=== PATIENT | male | born 1960 | race Caucasian/White ===

== ENCOUNTER 2016-12-21 12:54 | Emergency (ER) | payer MEDICAID ==
[2016-07-30 10:54] VITALS: BMI 23.0
[~2016-12-21 12:54] MED LIST: ASPIRIN EC81 M1 PO; ASPIRIN325 MG PO; BROVANA15 MCG/2 M INH; CRESTOR10 MG PO; EFFIENT10 MG PO; IPRAT-ALBUT 0.5-3 ML INH; LOPRESSOR25 MG PO; NICODERM C1 PATCH .2 TRANSDERM; OMNICEF300 MG PO; PLAVIX75 MG; PLAVIX75 MG PO; PREDNISONE10 MG PO; PREDNISONE20 MG PO; PROTONIX40 MG PO; PROVENTIL/2.5 MG/3 M INH; STERAPRED DS 1010 MG PO; STERAPRED DS 1210 MG PO; ZESTORETIC 10/11 TAB PO; ZOCOR20 MG PO
[2016-12-21 13:31] LABS: EOSINOPHILS 5.2 % (0-7); HEMATOCRIT 42.7 % (42.0-54.0); HEMOGLOBIN 14.1 g/dL (13.5-17.5); IMMATURE GRANULOCYTES 0.2 % (0-5); LYMPHOCYTES 33.2 % (15-50); MCH 30.8 pg (26.0-34.0); MCV 93.2 fL (80.0-100.0); MEAN PLATELET VOLUME 11.6 fL (7.4-10.4); MONOCYTES 6.7 % (2-11); NEUTROPHILS 53.7 % (40-80); RBC 4.58 10x6/uL (4.20-6.10); RDW 13.4 % (11.5-14.5); WBC 10.7 10x3/uL (4.8-10.8)
[2016-12-21 13:36] LABS: PLATELET COUNT 203 10x3/uL (130-400)
[2016-12-21 14:01] LABS: ALBUMIN 3.9 g/dL (3.4-5.0); ALKALINE PHOSPHATASE 82 U/L (46-116); ALT (SGPT) 24 U/L (10-68); BILIRUBIN - TOTAL 0.59 mg/dL (0.2-1.3); CALC OSMOLALITY 287 mosm/kg (275-300); CALCIUM 9.6 mg/dL (8.5-10.1); CARBON DIOXIDE 28.8 mmol/L (21.0-32.0); CHLORIDE - SERUM 106 mmol/L (98-107); CREATININE - SERUM 1.4 mg/dL (0.6-1.3); GLUCOSE 112 mg/dL (74-106); POTASSIUM - SERUM 4.1 mmol/L (3.5-5.1); PROTEIN - SERUM 7.9 g/dL (6.4-8.2); SODIUM 142 mmol/L (136-145); UREA NITROGEN 24 mg/dL (7-18); eGFR NON AFRICAN AMERICAN 55 mL/min (90-120)
[2016-12-21 14:10] LABS: CHOLESTEROL, TOTAL 237 mg/dL (0-200); CKMB 3.9 U/L (0.0-3.6); CREATINE KINASE 145 UL (21-232); HDL CHOLESTEROL 79 mg/dL (32-96); LDL CHOLESTEROL 144 mg/dL (0-100); LDL-HDL RATIO 1.8 ratio (1.5-3.5); TRIGLYCERIDE 70 mg/dL (30-200)
[2016-12-21 14:13] LABS: TROPONIN-I < 0.017 ng/mL (0.000-0.060)
== END 2016-12-21 16:00 | disposition home or self-care (01) ==
LOC: D.ER 12:54
PROVIDERS: Family Medicine
DX: R07.89 Other chest pain (principal); J45.909 Unspecified asthma, uncomplicated; J44.9 Chronic obstructive pulmonary disease, unspecified; K21.9 Gastro-esophageal reflux disease without esophagitis; I10 Essential (primary) hypertension; R00.0 Tachycardia, unspecified

== ENCOUNTER 2017-05-03 08:03 | Outpatient (CLI) | payer MEDICAID ==
[~2017-05-03] VITALS: Ht 180.3 cm; Wt 84.1 kg
--- NOTE | ~2017-05-03 | HEMODYNAMI ---
PATIENT:MARCUS DAVIS MEDICAL RECORD: [id number] : 56 LOCATION:D.CAT ADMISSION DATE: 05/03/17 Generatedon:05/03/201711:58 Patient name: MARCUS DAVIS Patient #: [id number] SSN: : 1960 Date of study: 05/03/2017 Page: Of Hemodynamic Procedure Report Patient Data Patient Demographics Procedure consent was obtained First Name: MARCUS Gender: Male Last Name: SUSAN : 1960 [facility] Initial: R Age: 57 year(s) Patient #: [id number] Race: Additional ID: [id number] Contact details [address]: [address] [place] [address] [address] State: [place] [facility] [place]: [address] Past Medical History Allergies: No known allergies Admission Admission Data Admission Date: 05/03/2017 Admission Time: 8:03 Admit Source: Other Lab Results Lab Result Date: 05/03/2017 Lab Result Time: 0:00 Biochemistry Name Units Result Min Max BUN mg/dl 22 --(----)-* 7 18 Creatinine mg/dl 1.1 --(--*-)-- 0.6 1.3 CBC Name Units Result Min Max Hemoglobin g/dl 13.3 -*(----)-- 13.5 17.5 Procedure Procedure Types Cath Procedure Diagnostic Procedure LHC C w/Coronaries Procedure Description Procedure Date Procedure Date: 05/03/2017 Procedure Start Time: 11:48 Procedure End Time: 11:58 Procedure Staff Name Function Anthony Harper MD Performing Physician Cat Mcdonald RT Scrub Hernan Rodrigues RN Nurse Justin Pendleton RT Monitor Procedure Data Cath Procedure Fluoroscopy Diagnostic fluoroscopy Total fluoroscopy Time: 1 time: 1 min min Diagnostic fluoroscopy Total fluoroscopy dose: 307 dose: 307 mGy mGy Contrast Material Contrast Material Type Amount (ml) Isovue 300 60 Entry Location Entry Primary Successful Side Size Upsize Upsize Entry Closure Succes sful Closure Location (Fr) 1 (Fr) 2 (Fr) Remarks Device Remarks Femoral Right 6 Fr Exoseal artery Short Estimated blood loss: 5 ml Diagnostic catheters Device Type Used For End Catheter Placement Cordis 5Fr Pigtail Procedure Catheter (MP) Cordis 5Fr JL 4.0 Procedure Catheter (MP) Cordis 5Fr 3DRC Catheter Procedure (MP) Procedure Medications Medication Administration Route Dosage Oxygen NC 2 l/min Heparin Flush Bag added to field 2 bags (1000units/500ml NS) 0.9% NaCl I.V. 100 ml/hr Fentanyl I.V. 50 mcg Versed I.V. 1 mg Fentanyl I.V. 50 mcg Versed I.V. 1 mg Hemodynamics Rest HGB: 13.3 (g/dl) Heart Rate: 75 (bpm) Pressure Samples Time Site Value (mmHg) Purpose Heart Use Rate(bpm) 11:49 LV 109/24,40 Snapshot 75 Snapshots Pre Cath Intra NCS Post Cath Vital Signs Time Heart Resp SPO2 NIBP (mmHg) Rhythm Pain Sedation Rate (ipm) (%) Status Level (bpm) 11:34:14 72 20 98 130/74(100) NSR 0 (11) 10(A) , No pain 11:38:26 65 21 100 127/81(108) NSR 0 (11) 10(A) , No pain 11:42:35 74 20 100 126/78(103) NSR 0 (11) 10(A) , No pain 11:46:45 70 18 99 121/74(96) NSR 0 (11) 10(A) , No pain 11:50:53 75 17 95 110/74(89) NSR 0 (11) 9(A) , No pain 11:54:57 81 18 94 106/70(82) NSR 0 (11) 9(A) , No pain 11:57:30 78 20 97 115/69(97) NSR 0 (11) 9(A) , No pain Medications Time Medication Route Dose Verified Delivered Reason Notes Effec tiveness by by 11:35:47 Oxygen NC 2 Hernan Becerra Per l/min Ravi Rodrigues RN physician RN 11:35:55 Heparin Flush added 2 Hernan Becerra used for Bag to bags Ravi Rodrigues RN procedure (1000units/500ml field RN NS) 11:36:07 0.9% NaCl I.V. 100 Hernan Becerra Per ml/hr Ravi Rodrigues RN physician RN 11:47:25 Fentanyl I.V. 50 Hernan Hernan for itzel Rodrigues RN sedation RN 11:47:31 Versed I.V. 1 mg Hernan Hernan for Ravi Rodrigues RN sedation RN 11:50:21 Fentanyl I.V. 50 Hernan Hernan for [facility] Ravi Rodrigues RN sedation RN 11:50:23 Versed I.V. 1 mg Hernan Hernan for Ravi Rodrigues RN sedation microgrinder operator Log Time Note 11:20:16 Cat Mcdonald RT(R) sent for patient. Start room use. 11:28:26 Diagnostic Cath Status : Elective 11:29:12 Admit Source: Other 11::37 Time tracking: Regular hours 11::45 Plan of Care:Hemodynamics will remain stable., Cardiac rhythm will remain stable., Comfort level will be maintained., Respiratory function will remain adequate., Patient/ family verbilizes understanding of procedure., Procedure tolerated without complication., Recovers from procedure without complications.. 11:30:02 Patient received from Pre/Post Procedure Room to CCL 2 Alert and oriented. Tansferred to table in Supine position. 11:30:19 Warm blankets applied, and luis hugger turned on for patient comfort. 11:30:20 Correct patient and procedure confirmed by team. 11:30:22 Signed procedure consent form obtained from patient. 11:30:24 ECG and BP/O2 sat monitors applied to patient. 11:33:02 Vital chart was started 11:33:03 Baseline sample Acquired. 11:33:07 Rhythm: sinus rhythm 11:33:09 Full Disclosure recording started 11:33:25 H&P Date Dictated: 04/30/2017 Within 30 days and on chart., H&P Addendum completed by physician on day of procedure. (MUST COMPLETE FOR ALL OUTPATIENTS). 11:33:26 Pre-procedure instructions explained to patient. 11:33:27 Pre-op teaching completed and patient verbalized understanding. 11:33:31 Family in patients room. 11:33:34 Patient NPO since Midnight. 11:33:45 Patient allergic to No known allergies 11:34:06 Is the patient allergic to Iodine/contrast media? No. 11:34:09 Is patient on blood thinner?Yes 11:34:16 ACC The patient was administered the following blood thiners within the last 24 hours: ACCPlavix 11:34:19 Patient diabetic? No. 11:34:23 ----Pre-sedation anethsthesia assessment.---- 11:34:32 Previous problem with sedation/anesthesia? No ? 11:34:34 Snore? No 11:34:36 Sleep apnea? No 11:34:38 Deviated septum? No 11:34:45 Opens mouth fully? Yes 11:34:46 Sticks out tongue? Yes 11:34:56 Airway obstruction? Yes COPD/ASTHMA 11:35:13 Dentures? No ? 11:35:22 Pre procedure: right dorsailis pedis pulse 2+ Normal; easily identifiable; not easily obliterated 11:35:27 Patient pain scale 0/10 ?. 11:35:39 IV patent on arrival in left wrist with 0.9% NaCl at O. 11:35:47 Oxygen 2 l/min NC was administered by Hernan Rodrigues RN; Per physician; 11:35:55 Heparin Flush Bag (1000units/500ml NS) 2 bags added to field was administered by Hernan Rodrigues RN; used for procedure; 11:36:07 0.9% NaCl 100 ml/hr I.V. was administered by Hernan Rodrigues RN; Per physician; 11:40:31 Lab Result : BUN 22 mg/dl 11:40:31 Lab Result : Creatinine 1.1 mg/dl 11:40:31 Lab Result : Hemoglobin 13.3 g/dl 11:40:42 Lab results completed and on chart. 11:40:48 Right groin area was prepped with chlora-prep and draped in sterile fashion 11:40:50 Alarms reviewed by R. N. 11:40:51 Sharps counted by scrub and verified by R.N. 11:41:09 Use device set Femoral Dx 11:41:10 Acist Syringe opened to sterile field. 11:41:11 Bag Decanter opened to sterile field. 11:41:12 Medline Cath Pack opened to sterile field. 11:41:12 Terumo 5Fr [place] Sheath opened to sterile field. 11:41:14 St Ambrocio 260cm J .035 wire opened to sterile field. 11:41:17 Acist Hand Control opened to sterile field. 11:41:18 Acist Manifold opened to sterile field. 11:41:20 Diagnostic Infinity 5Fr Multipack catheter opened to sterile field. 11:41:21 Tegaderm 4 x 4 opened to sterile field. 11:46:59 Physician arrived 11:47:00 --------ALL STOP TIME OUT------ 11:47:01 Final Timeout: patient, procedure, and site verified with staff and physician. All members of the team are in agreement. 11:47:03 Right groin site verified by team. 11:47:07 Physical assessment completed. ASA score P 2 - A patient with mild systemic disease as per Anthony Harper MD. 11:47:10 Sedation plan: IV Moderate Sedation Versed, Fentanyl 11:47:25 Fentanyl 50 mcg I.V. was administered by Hernan Rodrigues RN; for sedation; 11:47:31 Versed 1 mg I.V. was administered by Hernan Rodrigues RN; for sedation; 11:47:54 Procedure started. 11:48:19 Local anesthetic to right femoral artery with Lidocaine 2% by Anthony Harper MD.INITIAL ACCESS ONLY 11:48:57 A 6 Fr Short sheath was inserted into the Right Femoral artery 11:49:07 A Cordis 5Fr Pigtail Catheter (MP) was advanced over the wire and used for Procedure. 11:49:30 LV hemodynamics recorded. 11:49:32 LV gram done using MARLEY 11:49:38 EF : 30 % 11:50:05 Catheter removed. 11:50:15 A Cordis 5Fr JL 4.0 Catheter (MP) was advanced over the wire and used for Procedure. 11:50:21 Fentanyl 50 mcg I.V. was administered by Hernan Rodrigues RN; for sedation; 11:50:23 Versed 1 mg I.V. was administered by Hernan Rodrigues RN; for sedation; 11:51:23 LCA angiography performed. 11:51:55 Catheter removed. 11:52:00 A Cordis 5Fr 3DRC Catheter (MP) was advanced over the wire and used for Procedure. 11:52:22 RCA angiography performed. 11:53:27 Catheter removed. 11:53:39 Cordis 5Fr Exoseal opened to sterile field. 11:53:51 Sheath removed intact; hemostasis achieved with Exoseal to the Right Femoral artery. 11:55:54 Procedure ended.(Physican Out) 11:56:14 Fluoroscopy time 01.00 minutes. 11:56:38 Flurop Dose total: 307 11:56:38 Fluoroscopy dose: 307 mGy 11:56:46 Contrast amount:Isovue 300 60ml. 11:56:49 Sharps counted by scrub and verified by R.N. 11:57:02 Insertion/operative site no bleeding no hematoma. 11:57:06 Post-op/insertion site Right Femoral artery dressed using a 4 x 4 and Tegaderm. 11:57:10 Post right femoral artery:stable 11:57:12 Post Procedure Pulses reassessed and unchanged 11:57:21 Post-procedure physical assessment completed. ASA score P 2 - A patient with mild systemic disease as per Anthony Harper MD. 11:57:25 Post procedure rhythm: sinus rhythm 11:57:28 Estimated blood loss: 5 ml 11:57:30 Post procedure instruction explained to patient.Patient verbalizes understanding. 11:57:31 Patient needs reinforcement of post procedure teaching. 11:57:51 Procedure and supply charges have been captured, reviewed, submitted and are correct. 11:57:57 Vital chart was stopped 11:57:58 See physician's report for complete and final results. 11:58:01 Report given to Pre/Post Procedure Room. 11:58:04 Patient transfered to Pre/Post Procedure Room with Stretcher. 11:58:06 Procedure ended. 11:58:06 Full Disclosure recording stopped 11:58:10 End room use (Document Last) Device Usage Item Name Manufacture Quantity Catalog Hospital Part Current Minimal Lo t# / Number Charge Number Stock Stock Serial# Code Acist Acist 1 25215 258124 152192 069978 20 Syringe [employer] Inc Bag Microtek 1 2002S 600648 92890 499505 5 Dec[employer]ars [employer] Medline Cardinal 1 [id number] 619388 74785 940790 5 AOTMP Terumo 5Fr Terumo 1 FJO987 520999 762753 807344 [address] Ambrocio St Ambrocio 1 797729 611742 809959 143170 30 260cm J .035 wire Acist Hand Acist 1 68722 392946 296393 368997 5 Control Medical Systems Inc Acist Acist 1 54593 117991 040818 320953 5 Proteostasis Therapeutics Medical [employer] Inc Diagnostic Cardinal 1 FW9953 290973 88412 750318 30 Infinity Health 5Fr Multipack catheter Tegaderm 4 3M 1 1626W 028397 744490 666530 5 x 4 Cordis 5Fr Cardinal 1 710495 5 Pigtail Health Catheter (MP) Cordis 5Fr Cardinal 1 034672 5 JL 4.0 Health Catheter (MP) Cordis 5Fr Cardinal 1 378364 5 3DRC Health Catheter (MP) Cordis 5Fr Cardinal 1 EX500 334399 529903 424202 10 [employer] Signature Audit [place] Stage Time Signature Unsigned Intra-Procedure 05/03/2017 Justin Pendleton 11:58:39 AM RT(R) (CV) Signatures Monitor : Justin Pendleton RT Signature : Date : Time : [address] [address]
[2017-05-03 08:30] VITALS: BP 130/77; Ht 180.3 cm; Wt 84.1 kg
[2017-05-03 08:40] LABS: BASOPHILS 1.5 % (0-2); EOSINOPHILS 6.8 % (0-7); HEMATOCRIT 40.2 % (42.0-54.0); HEMOGLOBIN 13.3 g/dL (13.5-17.5); IMMATURE GRANULOCYTES 0.2 % (0-5); LYMPHOCYTES 39.2 % (15-50); MCH 30.8 pg (26.0-34.0); MCHC 33.1 g/dL (31.0-37.0); MCV 93.1 fL (80.0-100.0); MEAN PLATELET VOLUME 11.1 fL (7.4-10.4); MONOCYTES 11.5 % (2-11); NEUTROPHILS 40.8 % (40-80); PLATELET COUNT 205 10x3/uL (130-400); RBC 4.32 10x6/uL (4.20-6.10); RDW 13.5 % (11.5-14.5); WBC 8.9 10x3/uL (4.8-10.8)
[2017-05-03 08:56] LABS: ANION GAP 12.2 mmol/L (8-16); CALCIUM 8.8 mg/dL (8.5-10.1); CARBON DIOXIDE 28.1 mmol/L (21.0-32.0); CREATININE - SERUM 1.1 mg/dL (0.6-1.3); POTASSIUM - SERUM 4.3 mmol/L (3.5-5.1)
--- NOTE | 2017-05-03 12:15 | NUR ---
RIGHT GROIN CDI, NO HEMATOMA OR BLEEDING AT SITE, SOFT TO TOUCH. AT SIDE-DENIES NEEDS, PT RESTING WITH EYES CLOSED
--- NOTE | 2017-05-03 12:45 | NUR ---
NO CHANGES- CONT TO REST, RIGHT GROIN CDI, NO HEMATOMA OR BLEEDING
--- NOTE | 2017-05-03 14:00 | NUR ---
D'C IV WITH CATH TIP INTACT, WRITTEN AND VERBAL D'C INSTRUCTIONS GIVEN TO PT AND - VERBAL UNDERSTANDING NOTED. D'C HOME WITH DRIVING
--- NOTE | 2017-05-10 09:42 | OP ---
PATIENT NAME: MARCUS DAVIS MEDICAL RECORD: [id number] :56 LOCATION:D.CAT ADMISSION DATE: SURGEON: RITA GONZALEZ MD DATE OF OPERATION: 05/03/2017 PROCEDURES: 1. Left heart catheterization. 2. Selective coronary angiography. 3. Left ventriculogram. INDICATION: Chest pain compatible with angina and coronary artery disease, and cardiomyopathy. PROCEDURE IN DETAIL: After informed consent was obtained and after detailed explanation of risks, benefits as well as alternative therapies, the patient elected to proceed with angiogram and heart catheterization. The right femoral area was prepped and draped in normal sterile fashion. The right femoral artery was cannulated via modified Seldinger technique with placement of 5-[place] sheath. All catheters exchanged through this sheath. FINDINGS: The left ventriculogram was performed in standard 30-degree MARLEY view, reveals global hypokinesis, ejection fraction is 30%. SELECTIVE CORONARY ANGIOGRAPHY: 1. Left main showed no significant angiographic disease. 2. Left anterior descending has previously placed stents, these are widely patent with no significant restenosis. No disease elsewise. 3. Left circumflex has previously placed stents, these are widely patent with no significant restenosis. No disease elsewise throughout the circumflex or its branches. 4. The right coronary has previously placed stents, these are widely patent with no significant restenosis. No disease elsewise throughout right coronary branches. OVERALL IMPRESSION: No significant restenosis of any of the previously placed stents. No new stenosis; cardiomyopathy, unchanged. Continue medical management on treatment of the cardiac risk factors for coronary artery disease and cardiomyopathy. TRANSINT:[id number] Voice Confirmation ID: [id number] DOCUMENT ID: [id number] RITA GONZALEZ MD at 0942 CC: [id number] DICTATION DATE: 05/03/17 1157 SHEET LAYER: 05/03/172004 [facility] CLI 05/03/17 [place] [id number]
== END 2017-05-03 14:00 | disposition home or self-care (01) ==
LOC: D.CATH 08:03
PROVIDERS: Internal Medicine Interventional Cardiology
DX: I25.119 Atherosclerotic heart disease of native coronary artery with unspecified angina pectoris (principal); I10 Essential (primary) hypertension; F17.200 Nicotine dependence, unspecified, uncomplicated; Z01.812 Encounter for preprocedural laboratory examination

== ENCOUNTER 2017-06-25 09:06 | Emergency (ER) | payer MEDICAID ==
[2017-05-03 08:30] VITALS: BMI 25.8
== END 2017-06-25 11:12 | disposition home or self-care (01) ==
LOC: D.ER 09:06
DX: J20.9 Acute bronchitis, unspecified (principal); J44.1 Chronic obstructive pulmonary disease with (acute) exacerbation; I10 Essential (primary) hypertension; K21.9 Gastro-esophageal reflux disease without esophagitis

== ENCOUNTER 2017-09-07 19:39 | Inpatient (IN) | payer MEDICAID ==
[~2017-09-07] VITALS: Ht 180.3 cm; Wt 81.8 kg
[2017-09-07 20:54] LABS: BASOPHILS 0.8 % (0-2); HEMATOCRIT 40.6 % (42.0-54.0); HEMOGLOBIN 13.3 g/dL (13.5-17.5); IMMATURE GRANULOCYTES 0.4 % (0-5); LYMPHOCYTES 18.1 % (15-50); MCH 30.7 pg (26.0-34.0); MCHC 32.8 g/dL (31.0-37.0); MCV 93.8 fL (80.0-100.0); MEAN PLATELET VOLUME 11.6 fL (7.4-10.4); MONOCYTES 11.3 % (2-11); NEUTROPHILS 65.4 % (40-80); PLATELET COUNT 173 10x3/uL (130-400); RBC 4.33 10x6/uL (4.20-6.10); RDW 13.9 % (11.5-14.5); WBC 10.1 10x3/uL (4.8-10.8)
[2017-09-07 21:12] LABS: CALC OSMOLALITY 287 mosm/kg (275-300); CARBON DIOXIDE 29.5 mmol/L (21.0-32.0); CHLORIDE - SERUM 105 mmol/L (98-107); GLUCOSE 92 mg/dL (74-106); POTASSIUM - SERUM 5.1 mmol/L (3.5-5.1); SODIUM 144 mmol/L (136-145); UREA NITROGEN 16 mg/dL (7-18); eGFR NON AFRICAN AMERICAN 81 mL/min (90-120)
--- NOTE | 2017-09-07 22:50 | NUR ---
PT ARRIVED FROM ER VIA STRETCHER PUSHED BY STAFF. ADMITTED TO ROOM [address] GRAJEDA SERVICES. PT IS ALERT AND ORIENTED X 3. VOICED COMPLAINT OF DIFFICULTY BREATHING AND WEAKNESS AND MILD PAIN IN HIS LEGS. ADMIT HX DONE. SR'S ARE UP X 2 IN BED. CALL LIGHT AND BEDSIDE TABLE ARE WITHIN EASY REACH.
[2017-09-07 23:16] VITALS: BP 132/84
[2017-09-07 23:57] VITALS: BP 132/84; Ht 180.3 cm; Wt 81.8 kg
--- NOTE | 2017-09-08 01:48 | NUR ---
PT UP TO BATHROOM AD YUE. NO NEEDS VOICED. IV SALINE LOCKED.
[2017-09-08 03:30] VITALS: BP 120/72
--- NOTE | 2017-09-08 04:26 | NUR ---
PT RESTING IN BED WITH EYES CLOSED. RESPS ARE EVEN AND UNLABORED. NO ACUTE DISTRESS NOTED.
[2017-09-08 08:14] LABS: BASOPHILS 0.2 % (0-2); EOSINOPHILS 0.2 % (0-7); HEMATOCRIT 39.2 % (42.0-54.0); HEMOGLOBIN 13.1 g/dL (13.5-17.5); IMMATURE GRANULOCYTES 0.2 % (0-5); LYMPHOCYTES 7.7 % (15-50); MCH 30.9 pg (26.0-34.0); MCHC 33.4 g/dL (31.0-37.0); MCV 92.5 fL (80.0-100.0); MEAN PLATELET VOLUME 11.6 fL (7.4-10.4); MONOCYTES 0.7 % (2-11); PLATELET COUNT 165 10x3/uL (130-400); RBC 4.24 10x6/uL (4.20-6.10); RDW 13.9 % (11.5-14.5)
[2017-09-08 08:27] LABS: ALBUMIN 3.1 g/dL (3.4-5.0); ANION GAP 15.3 mmol/L (8-16); BILIRUBIN - TOTAL 0.4 mg/dL (0.2-1.3); CALCIUM 8.9 mg/dL (8.5-10.1); CARBON DIOXIDE 26.2 mmol/L (21.0-32.0); CREATININE - SERUM 1.3 mg/dL (0.6-1.3); MAGNESIUM - SERUM 1.8 mg/dL (1.8-2.4); POTASSIUM - SERUM 4.5 mmol/L (3.5-5.1); PROTEIN - SERUM 6.5 g/dL (6.4-8.2)
[2017-09-08 08:31] VITALS: BP 121/70
[2017-09-08] MEDS ORDERED: ZPAK PO (09:30)
[2017-09-08] MEDS ORDERED: PREDNISONE10 MG (09:32)
[2017-09-08] MEDS ORDERED: BREO ELLIPTA 11 EACH INH (09:32)
[2017-09-08] MEDS ORDERED: MUCINEX600 MG PO (09:33)
--- NOTE | 2017-09-08 11:24 | NUR ---
PATIENT SITTING UP IN BED WITH IV INTAFT. NO COMPLAINTS OR SIGNS OF DISTRESS. CALL LIGHT WITHIN REACH.
--- NOTE | 2017-09-08 12:35 | NUR ---
DISCHARGE INSTRUCTIONS REVIEWED AT THIS TIME. NO QUESTIONS OR CONCERNS VOICED. PIV TO R THUMB DC'D WITH CATHETER INTACT. PRESSURE AND DRESSING APPLIED. FRIEND AT BEDSIDE. ESCORTED OUT VIA WC.
--- NOTE | 2017-09-09 07:18 | HP ---
PATIENT: MARCUS DAVIS MEDICAL RECORD: [id number] ACCOUNT: [id number] LOCATION:D.MS [id number] : 56 ADMISSION DATE: 09/07/17 HISTORY AND PHYSICAL EXAMINATION CHIEF COMPLAINT: Shortness of breath. HISTORY OF PRESENT ILLNESS: The patient is a 57-year-old male who normally sees a nurse practitioner over at [facility] who presented to the Emergency Room complaining of 24-hour history of worsening of his COPD. The patient states he has used his updraft machine at home, but continues to have shortness of breath. PAST MEDICAL HISTORY: Significant that he has had stents placed in the past. He has also had a history of having asthma as well as COPD. PAST SURGICAL HISTORY: He had an appendectomy. FAMILY HISTORY: Mother and father both in their 70s, heart-related disease. SOCIAL HISTORY: The patient born in [place], lived in [place] for 40+ years. He has worked as autobody repairman. He is currently unemployed, living with his fiancee. MEDICATIONS: Include albuterol 1 to 2 puffs every 4 hours p.r.n. shortness of breath; aspirin 81 mg once a day; Spiriva inhaler; Symbicort inhaler; Plavix 75 mg once a day; pantoprazole 40 mg once a day. ALLERGIES: No known drug allergies. HABITS: The patient states that he continues to be a smoker, 1 to 1-1/2 pack per day. He has been smoking since 23 years of age. He denies any ethanol use or any illicit drug use. REVIEW OF SYSTEMS: CONSTITUTIONAL: He denies any headaches, seizures, or syncope. Denies change in visual or auditory acuity. PULMONARY: He does report increasing shortness of breath. He has had no sputum production. CARDIOVASCULAR: The patient does report having palpitations. He has had no chest pains. GENITOURINARY: No urgency, frequency, or dysuria. PHYSICAL EXAMINATION: GENERAL: In the Emergency Room, the patient's temperature was 100. His pulse was 110, his respirations 20, his blood pressure was 127/84. HEENT: His head is normocephalic. No lesions. Ears; TMs clear. Eyes; pupils are equal, round and reactive to light. His extraocular movements are intact. Nasal cavity, oral cavity and oropharynx clear. NECK: Supple. There is no adenopathy. HEART: Slightly tachycardic. LUNGS: He has end expiratory wheeze in all ramirez. ABDOMEN: Soft, bowel sounds are positive. EXTREMITIES: Lower extremities have no edema. HISTORY AND PHYSICAL [id number] MARCUS DAVIS LABORATORY AND DIAGNOSTIC DATA: The patient has white count of 10.1, hemoglobin 13.3, hematocrit 40.6 and platelets were 173. Sodium 144, potassium 5.1, chloride 105, CO2 is 29.5, BUN 16, creatinine 1.0, glucose is 92. He was negative for rapid influenza A and B. He had a chest x-ray that showed emphysematous changes in the lungs. No acute cardiopulmonary abnormality seen. ASSESSMENT: Includes history of arteriosclerotic heart disease with worsening of chronic obstructive pulmonary disease. PLAN: The patient will be admitted to be placed on updraft therapy as well as IV steroids, antibiotic therapy as well as O2 supplementation. TRANSINT:[id number] Voice Confirmation ID: [id number] DOCUMENT ID: [id number] MAXIMILIANO SIMS MD at 0718 CC: [id number] DICTATION DATE: 09/08/17920 SEAWEED HARVESTER: 09/08/17 1052 DIS IN 09/08/17 [facility] [address] [place] [address]
--- NOTE | 2017-10-08 07:19 | DS ---
PATIENT:MARCUS DAVIS :56 MEDICAL RECORD: [id number] DISCHARGE SUMMARY ADMISSION DATE: 09/07/17 DISCHARGE DATE: 09/08/17 DATE OF ADMISSION: 09/07/2017. DATE OF DISCHARGE: 09/08/2017. CONDITION ON DISCHARGE: Improved. ADMITTING DIAGNOSES: Arteriosclerotic heart disease, worsening of chronic obstructive pulmonary disease. DISCHARGE DIAGNOSES: Chronic obstructive pulmonary disease exacerbation, arteriosclerotic heart disease. HOSPITAL COURSE: This patient is a 57-year-old gentleman who normally sees a nurse practitioner at [facility], who had apparently presented to the Emergency Room complaining of 24-hour history of worsening of his COPD. The patient states that he has been using his updraft machine, but continues to have shortness of breath. The patient's physician is not on staff, was admitted to my service on an unassigned medicine. PHYSICAL EXAMINATION: GENERAL: The patient in the Emergency Room, temperature was 100, his pulse 110, his respirations 20, his blood pressure was 127/84. HEENT: Unremarkable. HEART: Had a regular rate. He was slightly tachycardic. LUNGS: He had end expiratory wheezes in all ramirez. ABDOMEN: Soft, bowel sounds were positive. White count was 10.1, hemoglobin 13.3, hematocrit 40.6, and platelets 173. Sodium 144, potassium 5.1, chloride 105, CO2 29.5, BUN 16, creatinine of 1, blood sugar 92. The patient had negative rapid influenza A and B. Chest x-ray showed emphysematous changes in the lungs, no cardiomegaly could be appreciated. The patient was admitted, given O2 supplementation, IV steroids, antibiotic therapy. On the , the patient states he was feeling better, comfortable. He would like to be discharged. His white count was 6, hemoglobin 13.1, hematocrit was 39.2, and his platelets were 165. His chest x-ray on admission showed emphysematous changes in the lungs. No acute cardiomegaly abnormalities were seen. We felt the patient could be discharged. DISCHARGE MEDICATIONS: He was discharged on DuoNeb 3 mL every 6 hours p.r.n. shortness of breath, aspirin 325 once a day, Protonix 40 mg once a day, Plavix 75 mg once a day, he was placed on a Z-Alexis, prednisone 10 mg once a day taking 40 mg for 3 days, 30 mg for 3 days, 20 for 3 days, 10 for 3 days. He was placed on Breo 100/25 one puff daily, Mucinex 600 mg b.i.d. He was advised to stop smoking immediately. DIET: [place] [employer]. ACTIVITIES: Ad lili. DISCHARGE SUMMARY REPORT [id number] MARCUS DAVIS FOLLOWUP: With his PCP at [facility] the following week. TRANSINT:[id number] Voice Confirmation ID: [id number] DOCUMENT ID: [id number] MAXIMILIANO SIMS MD at 0719 CC: [id number] DICTATION DATE: 10/06/17 1358 MOBILE ARCHITECT: 10/07/17 1239 DIS IN 09/08/17 [place] [id number] [place] [address]
== END 2017-09-08 12:39 | disposition home or self-care (01) | DRG 192 ==
LOC: D.ER 19:39 → D.MS 22:24
PROVIDERS: Emergency Medicine; ADMIT Family Medicine
DX: J44.1 Chronic obstructive pulmonary disease with (acute) exacerbation (principal); I25.10 Atherosclerotic heart disease of native coronary artery without angina pectoris

== ENCOUNTER 2017-09-10 05:00 | Inpatient (IN) | payer MEDICAID ==
[~2017-09-10] VITALS: Ht 180.3 cm; Wt 88.0 kg
--- NOTE | ~2017-09-10 | EC ---
PATIENT:MARCUS DAVIS DATE OF SERVICE: 09/10/17 SEX: M MEDICAL RECORD: [id number] DATE OF : 56 LOCATION:D. D.211 AGE OF PATIENT: 57 ADMISSION DATE: 09/10/17 REFERRING PHYSICIAN: INTERPRETING PHYSICIAN: ELIANA WANG MD ECHOCARDIOGRAM REPORT ECHO CHARGES 4 ECHO COMPLETE CLINICAL DIAGNOSIS: CHF ECHOCARDIOGRAPHIC MEASUREMENTS (adult normal given) AC root (d.<3.7cm) 3.1 cm LV Septum d (<1.2 cm> 1.2 cm Valve Excursion 1.8 cm LV Septum (systole) 2.1 cm Left Atria (s.<4.0cm> 3.6 cm LVPW d(<1.2cm) 1.2 cm RV (d.<2.3cm) 2.8 cm LVPW (sytole) 1.7 cm LV diastole(<5.6CM) 6.9 cm MV E-F(>70mm/sec) cm LV systole 5.0 cm LVOT Diameter 1.8 cm MV exc.(>10mm) cm Est.ejection fraction (50-75%) % Pericardial Effusion N DOPPLER: LVIT cm/sec A 138 cm/sec E 122 cm/sec LA cm/sec RVSP 36.2 mmHg LVOT 112 cm/sec AOP1/2T m/s Asc. Ao 156 cm/sec RVOT 77.0 cm/sec RA cm/sec PA 104 cm/sec AV Gradient Peak 9.7 mmHg AV Mean 4.2 mmHg AV Area 1.9 cm MV Gradient Peak 6.5 mmHg MV Mean 2.1 mmHg MV Area cm COMMENTS: Manager Cafe: [employer] [place] Can Reforming Machine Operator: 3 Dr. Chandler TAPE# PACS DATE OF SERVICE: 09/11/2017 Adequate 2D echo, color flow, spectral Doppler, and M-mode. Borderline LVH. LV internal dimensions are normal. LV is mildly globally hypokinetic with reduced EF, estimated EF 30-35%. Aortic valve sclerosis without stenosis. Doppler interrogation: Left atrium is normal at 3.6 cm. Mitral valve is thickened. Wxci-zs-sddeotoy MR. Right-sided chamber is grossly normal. Mild TR. RV systolic pressure is estimated greater than 36 mmHg via the continuity equation. ECHOCARDIOGRAM REPORT [id number] MARCUS DAVIS TRANSINT:[id number] Voice Confirmation ID: [id number] DOCUMENT ID: [id number] 09/19/2017 Edited to correct date of service, dmm. ELIANA WANG MD at 1144 CC: [id number] DICTATION DATE: 09/12/17 1309 POLITICAL ORGANIZER: 09/12/17 1318 ADM IN [place] [id number] [place] [id number]
[~2017-09-10 05:00] MED LIST changes: +BREO ELLIPTA 11 EACH INH; +MUCINEX600 MG PO; +PREDNISONE10 MG; +ZPAK PO
[2017-09-10 05:46] LABS: HEMATOCRIT 40.3 % (42.0-54.0); HEMOGLOBIN 13.4 g/dL (13.5-17.5); MCH 31.3 pg (26.0-34.0); MCHC 33.3 g/dL (31.0-37.0); MCV 94.2 fL (80.0-100.0); MEAN PLATELET VOLUME 11.9 fL (7.4-10.4); PLATELET COUNT 191 10x3/uL (130-400); RBC 4.28 10x6/uL (4.20-6.10); RDW 14.7 % (11.5-14.5); WBC 20.4 10x3/uL (4.8-10.8)
[2017-09-10 06:08] LABS: ALBUMIN 3.4 g/dL (3.4-5.0); ANION GAP 13.5 mmol/L (8-16); BILIRUBIN - TOTAL 0.2 mg/dL (0.2-1.3); CARBON DIOXIDE 26.9 mmol/L (21.0-32.0); CREATININE - SERUM 1.2 mg/dL (0.6-1.3); POTASSIUM - SERUM 4.4 mmol/L (3.5-5.1); PROTEIN - SERUM 6.7 g/dL (6.4-8.2)
[2017-09-10 06:59] LABS: ANISOCYTOSIS OCC; EOSINOPHILS 1 % (0-7); LYMPHOCYTES 11 % (15-50); MONOCYTES 11 % (2-11); NEUTROPHILS 77 % (40-80); PLATELET ESTIMATE NORMAL
[2017-09-10 07:23] LABS: CKMB 7.1 U/L (0.0-3.6); CREATINE KINASE 275 UL (21-232); TROPONIN-I 0.017 ng/mL (0.000-0.060)
[2017-09-10 08:32] VITALS: BMI 24.7
[2017-09-10 12:04] LABS: TROPONIN-I 0.034 ng/mL (0.000-0.060)
[2017-09-10 12:15] VITALS: BP 131/72
[2017-09-10] MEDS ORDERED: VENTOLIN HFA18 GM INH (13:46)
[2017-09-10] MEDS ORDERED: BAYER CHEWABLE81 MG PO (13:46)
[2017-09-10] MEDS ORDERED: SYMBICORT 16010.2 GM INH (13:47)
[2017-09-10] MEDS ORDERED: SPIRIVA18 MCG INH (13:47)
[2017-09-10] MEDS ORDERED: VIBRAMYCIN 100100 MG PO (13:49)
[2017-09-10] MEDS ORDERED: PREDNISONE20 MG PO (14:51)
[2017-09-10 15:30] VITALS: BP 126/62
[2017-09-10 17:28] LABS: CKMB 6.2 U/L (0.0-3.6); CREATINE KINASE 181 UL (21-232)
[2017-09-10 21:12] VITALS: BP 146/88
[2017-09-10 23:55] LABS: CKMB 5.6 U/L (0.0-3.6); CREATINE KINASE 152 UL (21-232); TROPONIN-I 0.049 ng/mL (0.000-0.060)
[2017-09-11 01:50] VITALS: BP 143/76
[2017-09-11 05:02] LABS: BASOPHILS 0 % (0-2); EOSINOPHILS 0 % (0-7); HEMATOCRIT 40.9 % (42.0-54.0); HEMOGLOBIN 13.2 g/dL (13.5-17.5); IMMATURE GRANULOCYTES 0.3 % (0-5); LYMPHOCYTES 5.1 % (15-50); MCH 30.8 pg (26.0-34.0); MCHC 32.3 g/dL (31.0-37.0); MCV 95.3 fL (80.0-100.0); MEAN PLATELET VOLUME 12.1 fL (7.4-10.4); MONOCYTES 3.3 % (2-11); NEUTROPHILS 91.3 % (40-80); PLATELET COUNT 181 10x3/uL (130-400); RBC 4.29 10x6/uL (4.20-6.10); RDW 14.7 % (11.5-14.5)
[2017-09-11 05:11] LABS: WBC 14.5 10x3/uL (4.8-10.8)
[2017-09-11 05:30] LABS: ANION GAP 6.2 mmol/L (8-16); CALCIUM 8.7 mg/dL (8.5-10.1); CARBON DIOXIDE 29.6 mmol/L (21.0-32.0); CREATININE - SERUM 1.1 mg/dL (0.6-1.3); MAGNESIUM - SERUM 1.9 mg/dL (1.8-2.4); PHOSPHOROUS 3.5 mg/dL (2.5-4.9); POTASSIUM - SERUM 4.8 mmol/L (3.5-5.1)
[2017-09-11 05:54] VITALS: BP 135/87
[2017-09-11 07:00] VITALS: BP 121/72
[2017-09-11 11:00] VITALS: BP 97/58
[2017-09-11 15:07] VITALS: BP 118/66
[2017-09-11 21:14] VITALS: BP 111/79
[2017-09-12 01:16] VITALS: BP 137/68
[2017-09-12 05:07] LABS: BASOPHILS 0.1 % (0-2); EOSINOPHILS 0 % (0-7); HEMOGLOBIN 13.6 g/dL (13.5-17.5); IMMATURE GRANULOCYTES 0.4 % (0-5); LYMPHOCYTES 5.9 % (15-50); MCH 31.1 pg (26.0-34.0); MCHC 32.4 g/dL (31.0-37.0); MCV 96.1 fL (80.0-100.0); MEAN PLATELET VOLUME 12.4 fL (7.4-10.4); NEUTROPHILS 89.6 % (40-80); PLATELET COUNT 194 10x3/uL (130-400); RBC 4.37 10x6/uL (4.20-6.10); RDW 14.7 % (11.5-14.5); WBC 16.5 10x3/uL (4.8-10.8)
[2017-09-12 05:17] LABS: ANION GAP 7.6 mmol/L (8-16); BILIRUBIN - TOTAL 0.3 mg/dL (0.2-1.3); CALCIUM 8.7 mg/dL (8.5-10.1); CREATININE - SERUM 1.3 mg/dL (0.6-1.3); PHOSPHOROUS 3.9 mg/dL (2.5-4.9); POTASSIUM - SERUM 4.6 mmol/L (3.5-5.1); PROTEIN - SERUM 6.2 g/dL (6.4-8.2)
[2017-09-12 05:39] VITALS: BP 120/66
[2017-09-12 07:49] VITALS: BP 120/76
[2017-09-12 08:18] LABS: IMMUNOGLOBULIN A 164 mg/dL (90-386); IMMUNOGLOBULIN E 5167 IU/mL (0-100); IMMUNOGLOBULIN G 623 mg/dL (700-1600)
[2017-09-12 12:05] VITALS: BP 132/78
[2017-09-12 14:10] VITALS: BMI 24.5
[2017-09-12 15:45] VITALS: BP 130/74
[2017-09-12 20:21] VITALS: BP 116/61
[2017-09-13 00:41] VITALS: BP 110/67
[2017-09-13 04:29] VITALS: BP 112/45
[2017-09-13 05:31] LABS: BASOPHILS 0 % (0-2); EOSINOPHILS 0 % (0-7); HEMATOCRIT 39.6 % (42.0-54.0); HEMOGLOBIN 12.6 g/dL (13.5-17.5); IMMATURE GRANULOCYTES 0.3 % (0-5); LYMPHOCYTES 5.8 % (15-50); MCH 30.9 pg (26.0-34.0); MCHC 31.8 g/dL (31.0-37.0); MCV 97.1 fL (80.0-100.0); MEAN PLATELET VOLUME 12.3 fL (7.4-10.4); MONOCYTES 2.6 % (2-11); NEUTROPHILS 91.3 % (40-80); PLATELET COUNT 168 10x3/uL (130-400); RBC 4.08 10x6/uL (4.20-6.10); RDW 14.3 % (11.5-14.5)
[2017-09-13 05:38] LABS: ANION GAP 9.7 mmol/L (8-16); CALCIUM 8.4 mg/dL (8.5-10.1); CARBON DIOXIDE 31.6 mmol/L (21.0-32.0); POTASSIUM - SERUM 4.3 mmol/L (3.5-5.1)
[2017-09-13 05:42] LABS: CREATININE - SERUM 1.9 mg/dL (0.6-1.3)
[2017-09-13 08:43] VITALS: BP 113/55
[2017-09-13 13:05] VITALS: BP 107/69
[2017-09-13 16:45] VITALS: BP 103/67
[2017-09-13 20:19] VITALS: BP 86/58
[2017-09-14 00:16] VITALS: BP 104/46
[2017-09-14 05:31] VITALS: BP 109/55
[2017-09-14 05:58] LABS: BASOPHILS 0 % (0-2); EOSINOPHILS 0 % (0-7); HEMATOCRIT 39.2 % (42.0-54.0); HEMOGLOBIN 12.7 g/dL (13.5-17.5); IMMATURE GRANULOCYTES 0.4 % (0-5); LYMPHOCYTES 5.6 % (15-50); MCH 30.9 pg (26.0-34.0); MCHC 32.4 g/dL (31.0-37.0); MCV 95.4 fL (80.0-100.0); MONOCYTES 4.1 % (2-11); NEUTROPHILS 89.9 % (40-80); PLATELET COUNT 173 10x3/uL (130-400); RBC 4.11 10x6/uL (4.20-6.10); RDW 14.1 % (11.5-14.5); WBC 13.2 10x3/uL (4.8-10.8)
[2017-09-14 06:16] LABS: ANION GAP 7.8 mmol/L (8-16); CALCIUM 8.1 mg/dL (8.5-10.1); CARBON DIOXIDE 30.5 mmol/L (21.0-32.0); CREATININE - SERUM 1.9 mg/dL (0.6-1.3); POTASSIUM - SERUM 4.3 mmol/L (3.5-5.1)
[2017-09-14 08:09] VITALS: BP 123/63
[2017-09-14 12:02] VITALS: BP 102/56
[2017-09-14 16:41] VITALS: BP 114/57
[2017-09-14 20:00] VITALS: BP 135/53
[2017-09-15] VITALS: BP 107/60
[2017-09-15 04:00] VITALS: BP 99/47
[2017-09-15 06:01] LABS: BASOPHILS 0 % (0-2); EOSINOPHILS 0 % (0-7); HEMATOCRIT 36.3 % (42.0-54.0); IMMATURE GRANULOCYTES 0.3 % (0-5); LYMPHOCYTES 4.6 % (15-50); MCH 31.3 pg (26.0-34.0); MCHC 33.1 g/dL (31.0-37.0); MCV 94.5 fL (80.0-100.0); MEAN PLATELET VOLUME 12.3 fL (7.4-10.4); MONOCYTES 4.6 % (2-11); NEUTROPHILS 90.5 % (40-80); PLATELET COUNT 154 10x3/uL (130-400); RBC 3.84 10x6/uL (4.20-6.10); RDW 13.9 % (11.5-14.5)
[2017-09-15 06:34] LABS: ANION GAP 8.6 mmol/L (8-16); CARBON DIOXIDE 30.9 mmol/L (21.0-32.0); CREATININE - SERUM 1.6 mg/dL (0.6-1.3); POTASSIUM - SERUM 4.5 mmol/L (3.5-5.1)
[2017-09-15 08:00] VITALS: BP 103/50
[2017-09-15 12:43] VITALS: BP 126/83
[2017-09-15 16:42] VITALS: BP 133/76
[2017-09-15 17:59] LABS: CREATINE KINASE 100 UL (21-232); TROPONIN-I 0.032 ng/mL (0.000-0.060)
[2017-09-15 20:58] VITALS: BP 137/68
[2017-09-15 22:22] LABS: CKMB 2.5 U/L (0.0-3.6); CREATINE KINASE 115 UL (21-232); TROPONIN-I 0.049 ng/mL (0.000-0.060)
[2017-09-16 00:02] VITALS: BP 121/68
[2017-09-16 03:41] LABS: BASOPHILS 0 % (0-2); EOSINOPHILS 0 % (0-7); HEMOGLOBIN 11.5 g/dL (13.5-17.5); IMMATURE GRANULOCYTES 0.4 % (0-5); LYMPHOCYTES 5.7 % (15-50); MCH 31.2 pg (26.0-34.0); MCHC 32.9 g/dL (31.0-37.0); MCV 94.9 fL (80.0-100.0); MEAN PLATELET VOLUME 11.8 fL (7.4-10.4); MONOCYTES 4.1 % (2-11); NEUTROPHILS 89.8 % (40-80); PLATELET COUNT 133 10x3/uL (130-400); RBC 3.69 10x6/uL (4.20-6.10); RDW 13.7 % (11.5-14.5); WBC 10.7 10x3/uL (4.8-10.8)
[2017-09-16 04:08] LABS: CALC OSMOLALITY 306 mosm/kg (275-300); CALCIUM 7.7 mg/dL (8.5-10.1); CARBON DIOXIDE 31.4 mmol/L (21.0-32.0); CHLORIDE - SERUM 111 mmol/L (98-107); CKMB 2.3 U/L (0.0-3.6); CREATINE KINASE 76 UL (21-232); CREATININE - SERUM 1.4 mg/dL (0.6-1.3); GLUCOSE 153 mg/dL (74-106); POTASSIUM - SERUM 4.8 mmol/L (3.5-5.1); SODIUM 143 mmol/L (136-145); TROPONIN-I 0.053 ng/mL (0.000-0.060); UREA NITROGEN 66 mg/dL (7-18); eGFR NON AFRICAN AMERICAN 55 mL/min (90-120)
[2017-09-16 05:54] VITALS: BP 102/72
[2017-09-16 08:20] VITALS: BP 113/68
[2017-09-16 11:15] VITALS: BP 120/60
[2017-09-16 15:45] VITALS: BP 126/66
[2017-09-16 20:00] VITALS: BP 157/86
[2017-09-17 05:52] VITALS: BP 133/76
[2017-09-17 07:55] VITALS: BP 128/64
[2017-09-17 11:52] VITALS: BP 133/75
[2017-09-17 16:11] VITALS: BP 130/82
[2017-09-17 21:08] VITALS: BP 135/82
[2017-09-18 00:48] VITALS: BP 123/67
[2017-09-18 04:21] VITALS: BP 115/70
[2017-09-18 06:12] LABS: BASOPHILS 0 % (0-2); EOSINOPHILS 0 % (0-7); HEMATOCRIT 35.2 % (42.0-54.0); HEMOGLOBIN 11.5 g/dL (13.5-17.5); IMMATURE GRANULOCYTES 0.3 % (0-5); LYMPHOCYTES 4.5 % (15-50); MCH 30.6 pg (26.0-34.0); MCHC 32.7 g/dL (31.0-37.0); MCV 93.6 fL (80.0-100.0); MEAN PLATELET VOLUME 12.5 fL (7.4-10.4); MONOCYTES 4.3 % (2-11); NEUTROPHILS 90.9 % (40-80); PLATELET COUNT 121 10x3/uL (130-400); RBC 3.76 10x6/uL (4.20-6.10); RDW 13.7 % (11.5-14.5); WBC 12.5 10x3/uL (4.8-10.8)
[2017-09-18 06:31] LABS: CALC OSMOLALITY 310 mosm/kg (275-300); CALCIUM 7.7 mg/dL (8.5-10.1); CARBON DIOXIDE 30.4 mmol/L (21.0-32.0); CHLORIDE - SERUM 112 mmol/L (98-107); GLUCOSE 147 mg/dL (74-106); POTASSIUM - SERUM 4.4 mmol/L (3.5-5.1); SODIUM 146 mmol/L (136-145); UREA NITROGEN 59 mg/dL (7-18); eGFR NON AFRICAN AMERICAN 81 mL/min (90-120)
[2017-09-18 08:04] VITALS: BP 118/69
[2017-09-18 11:45] VITALS: BP 121/71
[2017-09-18 16:00] VITALS: BP 139/82
[2017-09-18 22:37] VITALS: BP 114/65
[2017-09-19 03:54] VITALS: BP 130/78
[2017-09-19 07:48] VITALS: BP 135/78
[2017-09-19 08:43] LABS: BASOPHILS 0 % (0-2); EOSINOPHILS 0 % (0-7); HEMATOCRIT 36.3 % (42.0-54.0); IMMATURE GRANULOCYTES 0.5 % (0-5); LYMPHOCYTES 1.9 % (15-50); MCH 30.9 pg (26.0-34.0); MCHC 33.1 g/dL (31.0-37.0); MCV 93.6 fL (80.0-100.0); MEAN PLATELET VOLUME 12.4 fL (7.4-10.4); MONOCYTES 3.9 % (2-11); NEUTROPHILS 93.7 % (40-80); PLATELET COUNT 107 10x3/uL (130-400); RBC 3.88 10x6/uL (4.20-6.10); RDW 13.7 % (11.5-14.5)
[2017-09-19 08:48] LABS: WBC 19.7 10x3/uL (4.8-10.8)
[2017-09-19 08:56] LABS: ANION GAP 6.6 mmol/L (8-16); CALCIUM 7.8 mg/dL (8.5-10.1); CARBON DIOXIDE 31.4 mmol/L (21.0-32.0); CREATININE - SERUM 1.1 mg/dL (0.6-1.3)
[2017-09-19 11:32] VITALS: BP 137/70
[2017-09-19 15:58] VITALS: BP 132/67
[2017-09-19 20:06] VITALS: BP 117/75
[2017-09-20] VITALS (10 sets, daily range): BP systolic 106–159; BP diastolic 58–88
[2017-09-20 06:20] LABS: BASOPHILS 0 % (0-2); EOSINOPHILS 0 % (0-7); HEMATOCRIT 36.1 % (42.0-54.0); IMMATURE GRANULOCYTES 0.8 % (0-5); LYMPHOCYTES 1.9 % (15-50); MCH 30.7 pg (26.0-34.0); MCHC 33.2 g/dL (31.0-37.0); MCV 92.3 fL (80.0-100.0); MEAN PLATELET VOLUME 13.1 fL (7.4-10.4); MONOCYTES 6.6 % (2-11); NEUTROPHILS 90.7 % (40-80); PLATELET COUNT 94 10x3/uL (130-400); RBC 3.91 10x6/uL (4.20-6.10); RDW 13.8 % (11.5-14.5); WBC 18.5 10x3/uL (4.8-10.8)
[2017-09-20 06:42] LABS: PLATELET ESTIMATE DECREASED
[2017-09-20 06:47] LABS: ANION GAP 6.4 mmol/L (8-16); CALCIUM 7.5 mg/dL (8.5-10.1); CARBON DIOXIDE 33.9 mmol/L (21.0-32.0); CREATININE - SERUM 1.1 mg/dL (0.6-1.3); POTASSIUM - SERUM 4.3 mmol/L (3.5-5.1)
[2017-09-21] VITALS (24 sets, daily range): BP systolic 99–133; BP diastolic 53–101
[2017-09-21 08:08] LABS: BASOPHILS 0 % (0-2); EOSINOPHILS 0 % (0-7); HEMATOCRIT 33.9 % (42.0-54.0); HEMOGLOBIN 11.2 g/dL (13.5-17.5); IMMATURE GRANULOCYTES 0.4 % (0-5); LYMPHOCYTES 1.5 % (15-50); MCH 30.9 pg (26.0-34.0); MCV 93.6 fL (80.0-100.0); MEAN PLATELET VOLUME 12.4 fL (7.4-10.4); MONOCYTES 1.4 % (2-11); NEUTROPHILS 96.7 % (40-80); RBC 3.62 10x6/uL (4.20-6.10); RDW 14.2 % (11.5-14.5); WBC 16.8 10x3/uL (4.8-10.8)
[2017-09-21 08:09] LABS: PLATELET COUNT 59 10x3/uL (130-400)
[2017-09-21 08:25] LABS: ANION GAP 6.9 mmol/L (8-16); CALCIUM 7.3 mg/dL (8.5-10.1); CARBON DIOXIDE 35.8 mmol/L (21.0-32.0); POTASSIUM - SERUM 4.7 mmol/L (3.5-5.1)
[2017-09-21 08:29] LABS: CREATININE - SERUM 1.7 mg/dL (0.6-1.3)
[2017-09-22] VITALS (23 sets, daily range): BP systolic 92–132; BP diastolic 60–86; Ht 180.3 cm; Wt 88.0 kg
[2017-09-22 04:27] LABS: BASOPHILS 0 % (0-2); EOSINOPHILS 0 % (0-7); HEMATOCRIT 31.9 % (42.0-54.0); HEMOGLOBIN 10.7 g/dL (13.5-17.5); IMMATURE GRANULOCYTES 0.4 % (0-5); LYMPHOCYTES 1.3 % (15-50); MCH 30.4 pg (26.0-34.0); MCHC 33.5 g/dL (31.0-37.0); MEAN PLATELET VOLUME 13.9 fL (7.4-10.4); NEUTROPHILS 96.3 % (40-80); PLATELET COUNT 53 10x3/uL (130-400); RBC 3.52 10x6/uL (4.20-6.10); RDW 14.2 % (11.5-14.5); WBC 18.9 10x3/uL (4.8-10.8)
[2017-09-22 04:29] LABS: MCV 90.6 fL (80.0-100.0)
[2017-09-22 04:51] LABS: ALBUMIN 1.7 g/dL (3.4-5.0); ANION GAP 10.9 mmol/L (8-16); BILIRUBIN - TOTAL 0.18 mg/dL (0.2-1.3); CALCIUM 7.2 mg/dL (8.5-10.1); CARBON DIOXIDE 29.3 mmol/L (21.0-32.0); CREATININE - SERUM 2.4 mg/dL (0.6-1.3); MAGNESIUM - SERUM 1.7 mg/dL (1.8-2.4); PHOSPHOROUS 2.8 mg/dL (2.5-4.9); POTASSIUM - SERUM 4.2 mmol/L (3.5-5.1); PROTEIN - SERUM 3.9 g/dL (6.4-8.2)
[2017-09-22 13:19] LABS: CREATININE - URINE 53.9 mg/dL (30-125); PROTEIN - URINE 72.7 mg/dL (0.0-11.9)
[2017-09-22 13:21] LABS: APPEARANCE HAZY (CLEAR); COLOR YELLOW (YELLOW)
[2017-09-22 13:22] LABS: BILIRUBIN NEGATIVE (NEGATIVE); GLUCOSE 500 mg/dL (NEGATIVE); KETONE NEGATIVE (NEGATIVE); NITRITE NEGATIVE (NEGATIVE); PROTEIN 1+ mg/dL (NEGATIVE); SPECIFIC GRAVITY 1.015 (1.005-1.020); UROBILINOGEN NORMAL (NORMAL)
[2017-09-22 13:26] LABS: AMORPHOUS SEDIMENT >1+ /lpf (NONE SEEN); BACTERIA MODERATE /hpf (NONE SEEN); EPITHELIAL CELLS 0-5 /hpf (0-5); GRANULAR CAST 0-5 /lpf (NONE SEEN); WHITE CELLS - URINE 0-5 /hpf (0-5)
[2017-09-22 15:24] LABS: ANION GAP 10.7 mmol/L (8-16); CALCIUM 7.6 mg/dL (8.5-10.1); CARBON DIOXIDE 30.4 mmol/L (21.0-32.0); CREATININE - SERUM 2.9 mg/dL (0.6-1.3); POTASSIUM - SERUM 4.1 mmol/L (3.5-5.1)
[2017-09-22 16:20] LABS: ANION GAP 11.1 mmol/L (8-16); CALCIUM 7.8 mg/dL (8.5-10.1); CREATININE - SERUM 2.9 mg/dL (0.6-1.3); POTASSIUM - SERUM 4.1 mmol/L (3.5-5.1)
[2017-09-23] VITALS (24 sets, daily range): BP systolic 83–145; BP diastolic 52–99
[2017-09-23 05:12] LABS: BASOPHILS 0 % (0-2); EOSINOPHILS 0.1 % (0-7); HEMOGLOBIN 10.5 g/dL (13.5-17.5); IMMATURE GRANULOCYTES 0.3 % (0-5); LYMPHOCYTES 1.1 % (15-50); MCH 30.2 pg (26.0-34.0); MCHC 33.9 g/dL (31.0-37.0); MCV 89.1 fL (80.0-100.0); MEAN PLATELET VOLUME 13.6 fL (7.4-10.4); MONOCYTES 1.8 % (2-11); NEUTROPHILS 96.7 % (40-80); PLATELET COUNT 52 10x3/uL (130-400); RBC 3.48 10x6/uL (4.20-6.10); RDW 13.9 % (11.5-14.5); WBC 15.7 10x3/uL (4.8-10.8)
[2017-09-23 05:59] LABS: % SATURATION 16 % (15-55); IRON 17 ug/dl (35-150); TOTAL IRON BIND CAPACITY 105 ug/dl (260-445); UNSAT IRON BIND CAPACITY 88 ug/dl (150-375)
[2017-09-23 06:19] LABS: ALBUMIN 1.5 g/dL (3.4-5.0); ANION GAP 12.1 mmol/L (8-16); BILIRUBIN - TOTAL 0.3 mg/dL (0.2-1.3); CALCIUM 7.7 mg/dL (8.5-10.1); CREATININE - SERUM 3.2 mg/dL (0.6-1.3); MAGNESIUM - SERUM 1.8 mg/dL (1.8-2.4); PHOSPHOROUS 3.3 mg/dL (2.5-4.9); POTASSIUM - SERUM 4.1 mmol/L (3.5-5.1); PROTEIN - SERUM 4.4 g/dL (6.4-8.2)
[2017-09-24] VITALS (23 sets, daily range): BP systolic 107–164; BP diastolic 64–135
[2017-09-24 04:32] LABS: BASOPHILS 0.1 % (0-2); EOSINOPHILS 0 % (0-7); HEMATOCRIT 29.9 % (42.0-54.0); HEMOGLOBIN 10.3 g/dL (13.5-17.5); IMMATURE GRANULOCYTES 0.3 % (0-5); LYMPHOCYTES 1.5 % (15-50); MCH 30.7 pg (26.0-34.0); MCHC 34.4 g/dL (31.0-37.0); MEAN PLATELET VOLUME 12.8 fL (7.4-10.4); MONOCYTES 1.3 % (2-11); NEUTROPHILS 96.8 % (40-80); PLATELET COUNT 53 10x3/uL (130-400); RBC 3.36 10x6/uL (4.20-6.10); RDW 14.3 % (11.5-14.5); WBC 14.2 10x3/uL (4.8-10.8)
[2017-09-24 05:05] LABS: ALBUMIN 1.5 g/dL (3.4-5.0); ANION GAP 13.7 mmol/L (8-16); BILIRUBIN - TOTAL 0.32 mg/dL (0.2-1.3); CALCIUM 7.8 mg/dL (8.5-10.1); CARBON DIOXIDE 27.1 mmol/L (21.0-32.0); CREATININE - SERUM 3.9 mg/dL (0.6-1.3); POTASSIUM - SERUM 3.8 mmol/L (3.5-5.1); PROTEIN - SERUM 4.4 g/dL (6.4-8.2)
[2017-09-24 12:21] LABS: APPEARANCE HAZY (CLEAR); BILIRUBIN NEGATIVE (NEGATIVE); COLOR YELLOW (YELLOW); KETONE NEGATIVE (NEGATIVE); NITRITE NEGATIVE (NEGATIVE); SPECIFIC GRAVITY 1.015 (1.005-1.020); UROBILINOGEN NORMAL (NORMAL)
[2017-09-24 12:22] LABS: AMORPHOUS SEDIMENT <1+ /lpf (NONE SEEN); BACTERIA MODERATE /hpf (NONE SEEN); EPITHELIAL CELLS OCC /hpf (0-5); GLUCOSE NEGATIVE (NEGATIVE); GRANULAR CAST 0-5 /lpf (NONE SEEN); HYALINE CAST RARE /lpf (NONE SEEN); MUCUS <1+ /lpf (NONE SEEN); PROTEIN TRACE mg/dL (NEGATIVE); WHITE CELLS - URINE RARE /hpf (0-5)
[2017-09-25] VITALS (23 sets, daily range): BP systolic 104–151; BP diastolic 60–100
[2017-09-25 04:48] LABS: APTT 33.6 SECONDS (22.8-39.4); D-DIMER-QUANTITATIVE 1.75 ug/mLFEU (0.20-0.54)
[2017-09-25 04:49] LABS: INR 1.07 (0.85-1.17); PROTIME 13.5 SECONDS (11.6-15.0)
[2017-09-25 04:50] LABS: BASOPHILS 0.1 % (0-2); EOSINOPHILS 0.1 % (0-7); HEMATOCRIT 30.3 % (42.0-54.0); HEMOGLOBIN 10.5 g/dL (13.5-17.5); IMMATURE GRANULOCYTES 0.3 % (0-5); LYMPHOCYTES 2.1 % (15-50); MCH 30.6 pg (26.0-34.0); MCHC 34.7 g/dL (31.0-37.0); MCV 88.3 fL (80.0-100.0); MEAN PLATELET VOLUME 13.1 fL (7.4-10.4); MONOCYTES 0.9 % (2-11); NEUTROPHILS 96.5 % (40-80); PLATELET COUNT 53 10x3/uL (130-400); RBC 3.43 10x6/uL (4.20-6.10); RDW 14.4 % (11.5-14.5)
[2017-09-25 05:06] LABS: ALBUMIN 1.6 g/dL (3.4-5.0); ANION GAP 13.2 mmol/L (8-16); BILIRUBIN - TOTAL 0.46 mg/dL (0.2-1.3); CALCIUM 7.9 mg/dL (8.5-10.1); CARBON DIOXIDE 27.7 mmol/L (21.0-32.0); CREATININE - SERUM 4.3 mg/dL (0.6-1.3); POTASSIUM - SERUM 3.9 mmol/L (3.5-5.1); PROTEIN - SERUM 4.8 g/dL (6.4-8.2)
[2017-09-25 11:11] LABS: COMPLEMENT C4 13.3 mg/dL (17.4-52.2)
[2017-09-25 12:51] LABS: ERYTHROCYTE SEDIMENTATION RATE 31 mm/hr (0-20)
[2017-09-26] VITALS (24 sets, daily range): BP systolic 142–169; BP diastolic 82–112
[2017-09-26 04:26] LABS: BASOPHILS 0.2 % (0-2); EOSINOPHILS 0 % (0-7); HEMATOCRIT 31.4 % (42.0-54.0); HEMOGLOBIN 10.9 g/dL (13.5-17.5); IMMATURE GRANULOCYTES 0.4 % (0-5); LYMPHOCYTES 2.9 % (15-50); MCH 30.2 pg (26.0-34.0); MCHC 34.7 g/dL (31.0-37.0); MONOCYTES 1.1 % (2-11); NEUTROPHILS 95.4 % (40-80); RBC 3.61 10x6/uL (4.20-6.10); RDW 14.5 % (11.5-14.5); WBC 13.4 10x3/uL (4.8-10.8)
[2017-09-26 04:37] LABS: PLATELET COUNT 67 10x3/uL (130-400)
[2017-09-26 04:55] LABS: ALBUMIN 1.5 g/dL (3.4-5.0); ANION GAP 12.8 mmol/L (8-16); BILIRUBIN - TOTAL 0.4 mg/dL (0.2-1.3); CALCIUM 7.7 mg/dL (8.5-10.1); CREATININE - SERUM 4.1 mg/dL (0.6-1.3); MAGNESIUM - SERUM 1.8 mg/dL (1.8-2.4); PHOSPHOROUS 4.2 mg/dL (2.5-4.9); POTASSIUM - SERUM 3.8 mmol/L (3.5-5.1); PROTEIN - SERUM 4.9 g/dL (6.4-8.2)
[2017-09-26 04:56] LABS: TROPONIN-I 0.352 ng/mL (0.000-0.060)
[2017-09-26 09:17] LABS: ANTI-STREPTOLYSIN O 51.4 IU/mL (0.0-200.0)
[2017-09-26 14:16] LABS: ANA REFLEX - DIRECT Negative (Negative); SPE - A/G RATIO 0.8 (0.7-1.7); SPE - ALBUMIN 2.1 g/dL (2.9-4.4); SPE - ALPHA-1 GLOBULIN 0.4 g/dL (0.0-0.4); SPE - ALPHA-2 GLOBULIN 1.2 g/dL (0.4-1.0); SPE - BETA GLOBULIN 0.6 g/dL (0.7-1.3); SPE - GAMMA GLOBULIN 0.5 g/dL (0.4-1.8); SPE - M-SPIKE Not Observed g/dL (Not Observed); SPE - TOTAL PROTEIN 4.7 g/dL (6.0-8.5)
[2017-09-26 15:17] LABS: LEGIONELLA ANTIGEN - URINE Negative (Negative)
[2017-09-27] VITALS (24 sets, daily range): BP systolic 127–169; BP diastolic 74–102
[2017-09-27 05:52] LABS: BASOPHILS 0.1 % (0-2); EOSINOPHILS 0 % (0-7); HEMATOCRIT 29.1 % (42.0-54.0); HEMOGLOBIN 10.2 g/dL (13.5-17.5); IMMATURE GRANULOCYTES 0.3 % (0-5); LYMPHOCYTES 3.3 % (15-50); MCH 30.4 pg (26.0-34.0); MCHC 35.1 g/dL (31.0-37.0); MCV 86.9 fL (80.0-100.0); MONOCYTES 1.2 % (2-11); NEUTROPHILS 95.1 % (40-80); RBC 3.35 10x6/uL (4.20-6.10); RDW 14.5 % (11.5-14.5); WBC 10.3 10x3/uL (4.8-10.8)
[2017-09-27 05:57] LABS: PLATELET COUNT 51 10x3/uL (130-400)
[2017-09-27 06:31] LABS: ALBUMIN 1.6 g/dL (3.4-5.0); ANION GAP 14.9 mmol/L (8-16); BILIRUBIN - TOTAL 0.43 mg/dL (0.2-1.3); CALCIUM 7.5 mg/dL (8.5-10.1); CARBON DIOXIDE 25.4 mmol/L (21.0-32.0); MAGNESIUM - SERUM 1.9 mg/dL (1.8-2.4); PHOSPHOROUS 5.1 mg/dL (2.5-4.9); POTASSIUM - SERUM 3.3 mmol/L (3.5-5.1); PROTEIN - SERUM 4.9 g/dL (6.4-8.2)
[2017-09-27 08:17] LABS: ANTI-GLOMERULAR BASMENT MEMBRN 3 units (0-20)
[2017-09-28] VITALS (19 sets, daily range): BP systolic 116–160; BP diastolic 75–103
[2017-09-28 07:17] LABS: BASOPHILS 0 % (0-2); EOSINOPHILS 0 % (0-7); HEMATOCRIT 28.1 % (42.0-54.0); HEMOGLOBIN 9.8 g/dL (13.5-17.5); IMMATURE GRANULOCYTES 0.5 % (0-5); LYMPHOCYTES 2.4 % (15-50); MCH 30.4 pg (26.0-34.0); MCHC 34.9 g/dL (31.0-37.0); MCV 87.3 fL (80.0-100.0); NEUTROPHILS 95.1 % (40-80); PLATELET COUNT 50 10x3/uL (130-400); RBC 3.22 10x6/uL (4.20-6.10); RDW 14.5 % (11.5-14.5); WBC 8.4 10x3/uL (4.8-10.8)
[2017-09-28 07:51] LABS: ALBUMIN 1.6 g/dL (3.4-5.0); ANION GAP 14.6 mmol/L (8-16); BILIRUBIN - TOTAL 0.43 mg/dL (0.2-1.3); CALCIUM 7.3 mg/dL (8.5-10.1); CARBON DIOXIDE 26.9 mmol/L (21.0-32.0); CREATININE - SERUM 3.8 mg/dL (0.6-1.3); MAGNESIUM - SERUM 1.8 mg/dL (1.8-2.4); PHOSPHOROUS 5.4 mg/dL (2.5-4.9); POTASSIUM - SERUM 3.5 mmol/L (3.5-5.1); PROTEIN - SERUM 4.9 g/dL (6.4-8.2); THYROID STIMULATING HORMONE 0.17 uIU/mL (0.36-3.74)
[2017-09-29 17:07] LABS: HEPARIN INDUCED PLATELET AB 0.282 OD (0.000-0.400)
[2017-09-30 11:12] LABS: PLT ASSOCIATED ANTI-IA/IIA Negative (Negative); PLT ASSOCIATED ANTI-IB/IX Negative (Negative)
== END 2017-09-28 18:18 | disposition hospice, inpatient (51) | DRG 177 ==
LOC: D.ER 05:00 → OBSVTIME 07:12 → D.ICU 07:12 → D.M2 07:12 → D.ICU 09-20 18:07
PROVIDERS: Family Medicine; Internal Medicine; Internal Medicine Cardiovascular Disease; Internal Medicine Hematology & Oncology; Internal Medicine Pulmonary Disease; Student in an Organized Health Care Education/Training Program
PROC: 5A09557 Assistance with Respiratory Ventilation, Greater than 96 Consecutive Hours, Continuous Positive Airway Pressure (ICD-10-PCS; principal; 2017-09-15)
PROC: 0T9B70Z Drainage of Bladder with Drainage Device, Via Natural or Artificial Opening (ICD-10-PCS; 2017-09-20)
PROC: 05HY33Z Insertion of Infusion Device into Upper Vein, Percutaneous Approach (ICD-10-PCS; 2017-09-24)
DX: J15.6 Pneumonia due to other Gram-negative bacteria (principal); J96.21 Acute and chronic respiratory failure with hypoxia; J44.1 Chronic obstructive pulmonary disease with (acute) exacerbation; J44.0 Chronic obstructive pulmonary disease with (acute) lower respiratory infection; M35.1 Other overlap syndromes; F17.203 Nicotine dependence unspecified, with withdrawal; I42.9 Cardiomyopathy, unspecified; I24.8 Other forms of acute ischemic heart disease; N17.9 Acute kidney failure, unspecified; J13 Pneumonia due to Streptococcus pneumoniae; I25.119 Atherosclerotic heart disease of native coronary artery with unspecified angina pectoris; K21.9 Gastro-esophageal reflux disease without esophagitis; J30.9 Allergic rhinitis, unspecified; Z99.81 Dependence on supplemental oxygen; I25.2 Old myocardial infarction; Z95.5 Presence of coronary angioplasty implant and graft; Z66 Do not resuscitate; D69.6 Thrombocytopenia, unspecified

== ENCOUNTER 2017-09-28 18:16 | Inpatient (IN) | payer OTHER ==
[~2017-09-28] VITALS: Ht 180.3 cm; Wt 84.1 kg
[~2017-09-28 18:16] MED LIST changes: +BAYER CHEWABLE81 MG PO; +SPIRIVA18 MCG INH; +SYMBICORT 16010.2 GM INH; +VENTOLIN HFA18 GM INH; +VIBRAMYCIN 100100 MG PO
[2017-09-28 19:00] VITALS: BP 154/84
[2017-09-28 19:40] VITALS: BP 154/85; BMI 25.8
[2017-09-29] VITALS: BP 103/76
[2017-09-29 08:47] VITALS: BP 129/73
[2017-09-29 20:00] VITALS: BP 96/52
[2017-09-30 08:21] VITALS: BP 114/70
[2017-10-01] VITALS: BP 96/58
[2017-10-01 08:45] VITALS: BP 129/77
[2017-10-01 22:00] VITALS: BP 134/68
[2017-10-02 10:57] VITALS: BP 149/81
[2017-10-02 20:00] VITALS: BP 150/91
[2017-10-03 09:38] VITALS: BP 143/75
[2017-10-03 22:28] VITALS: BP 108/58
[2017-10-04 08:57] VITALS: BP 96/49
[2017-10-04 20:00] VITALS: BP 70/37
[2017-10-05 08:34] VITALS: BP 81/43
[2017-10-05 13:41] VITALS: Ht 180.3 cm; Wt 84.1 kg
[2017-10-05 22:01] VITALS: BP 81/42
[2017-10-06 09:30] VITALS: BP 81/40
[2017-10-06 20:34] VITALS: BP 87/41
[2017-10-07 08:44] VITALS: BP 82/42
[2017-10-07 18:42] VITALS: BP 120/41; BMI 16.7
[2017-10-07 21:17] VITALS: BP 94/43
[2017-10-08 08:45] VITALS: BP 63/29
== END 2017-10-08 16:30 | DRG 951 ==
LOC: D.MS 18:16 → D.ICU 18:16 → D.MS 22:22
DX: Z51.5 Encounter for palliative care (principal); Z66 Do not resuscitate